=== PATIENT | female | born 1930 ===

== ENCOUNTER 2017-02-08 09:53 | Inpatient (IN) | payer MEDICARE, MEDICAID ==
[~2017-02-08] VITALS: Ht 172.7 cm; Wt 72.6 kg
--- NOTE | ~2017-02-08 | EC ---
PATIENT:EROS BATES DATE OF SERVICE: 02/08/17 SEX: F MEDICAL RECORD: [id number] DATE OF : [birth year] LOCATION:D.M2 D.210 AGE OF PATIENT: 86 ADMISSION DATE: 02/08/17 REFERRING PHYSICIAN: INTERPRETING PHYSICIAN: OLEG PENA MD ECHOCARDIOGRAM REPORT ECHO CHARGES 4 ECHO COMPLETE CLINICAL DIAGNOSIS: MURMUR/RENAL FAILURE ECHOCARDIOGRAPHIC MEASUREMENTS (adult normal given) AC root (d.<3.7cm) 3.0 cm LV Septum d (<1.2 cm> 1.0 cm Valve Excursion 0.9 cm LV Septum (systole) 1.6 cm Left Atria (s.<4.0cm> 3.4 cm LVPW d(<1.2cm) 1.2 cm RV (d.<2.3cm) 1.6 cm LVPW (sytole) 1.6 cm LV diastole(<5.6CM) 4.3 cm MV E-F(>70mm/sec) cm LV systole 1.8 cm LVOT Diameter 1.4 cm MV exc.(>10mm) cm Est.ejection fraction (50-75%) % Pericardial Effusion N DOPPLER: LVIT cm/sec A 206 cm/sec E 146 cm/sec LA cm/sec RVSP 31.0 mmHg LVOT 128 cm/sec AOP1/2T m/s Asc. Ao 294 cm/sec RVOT 85.0 cm/sec RA cm/sec PA 166 cm/sec AV Gradient Peak 35.0 mmHg AV Mean 21.0 mmHg AV Area 0.7 cm MV Gradient Peak 17.0 mmHg MV Mean 7.0 mmHg MV Area cm COMMENTS: Heat Treat Puller: 1 CHARLY ROBERTOOE Cured Meats Supervisor: 1 Dr. Pena TAPE# PACS DATE OF SERVICE: 02/08/2017 Echocardiogram FINDINGS: 1. Left ventricular chamber size is within normal limits. Left ventricular systolic function is normal. Overall ejection fraction estimated at 60%. 2. Left atrium, right atrium, and right ventricle chamber sizes are within normal limits. 3. Valvular structures: Aortic valve demonstrates moderate calcific aortic ECHOCARDIOGRAM REPORT [id number] EROS BATES stenosis, valve area calculates to 0.7 cm-squared. There is a gradient of 35 mm across the valve. The remaining valvular structures have normal structure and motion. 4. Doppler interrogation elsewise reveals moderate mitral regurgitation, mild tricuspid regurgitation, no other valvular insufficiency or stenosis. Pulmonary systolic pressure is normal estimated at 31 mmHg. 5. No evidence of pericardial effusion or left ventricular thrombus. TRANSINT:[id number] Voice Confirmation ID: [id number] DOCUMENT ID: [id number] OLEG PENA MD CC: [id number] DICTATION DATE: 02/08/17 163 WEATHER STRIP MECHANIC: 02/08/17 2338 ADM IN [facility] [address] [place] [address]
[2017-02-08 11:00] LABS: BASOPHILS 0.1 % (0-2); EOSINOPHILS 3.6 % (0-7); HEMATOCRIT 23.3 % (36.0-48.0); IMMATURE GRANULOCYTES 0.7 % (0-5); LYMPHOCYTES 14.4 % (15-50); MCH 28.9 pg (26.0-34.0); MCHC 31.8 g/dL (31.0-37.0); MEAN PLATELET VOLUME 8.3 fL (7.4-10.4); MONOCYTES 11.2 % (2-11); PLATELET COUNT 119 10x3/uL (130-400); RBC 2.56 10x6/uL (4.00-5.40); RDW 15.9 % (11.5-14.5); WBC 6.9 10x3/uL (4.8-10.8)
[2017-02-08 11:08] LABS: HEMOGLOBIN 7.4 g/dL (12-16)
[2017-02-08 11:17] LABS: ALBUMIN 2.9 g/dL (3.4-5.0); ALKALINE PHOSPHATASE 72 U/L (46-116); ALT (SGPT) 13 U/L (10-68); BILIRUBIN - TOTAL 0.28 mg/dL (0.2-1.3); CALC OSMOLALITY 300 mosm/kg (275-300); CALCIUM 8.4 mg/dL (8.5-10.1); CARBON DIOXIDE 22.1 mmol/L (21.0-32.0); CHLORIDE - SERUM 104 mmol/L (98-107); CREATININE - SERUM 4.1 mg/dL (0.6-1.3); GLUCOSE 119 mg/dL (74-106); POTASSIUM - SERUM 4.9 mmol/L (3.5-5.1); PROTEIN - SERUM 6.2 g/dL (6.4-8.2); SODIUM 136 mmol/L (136-145); UREA NITROGEN 91 mg/dL (7-18); eGFR NON AFRICAN AMERICAN 11 mL/min (90-120)
[2017-02-08 11:28] LABS: PRO BNP 1660 pg/mL (0-450)
[2017-02-08 11:56] LABS: TROPONIN-I < 0.017 ng/mL (0.000-0.060)
[2017-02-08 12:20] LABS: APTT 29.7 SECONDS (22.8-39.4); INR 1.13 (0.85-1.17); PROTIME 14.4 SECONDS (11.6-15.0)
[2017-02-08 12:33] LABS: APPEARANCE CLOUDY (CLEAR); BILIRUBIN NEGATIVE (NEGATIVE); COLOR YELLOW (YELLOW); GLUCOSE NEGATIVE (NEGATIVE); KETONE NEGATIVE (NEGATIVE); LEUKOCYTE ESTERASE 2+ (NEGATIVE); NITRITE POSITIVE (NEGATIVE); PROTEIN TRACE mg/dL (NEGATIVE); UROBILINOGEN NORMAL (NORMAL)
[2017-02-08 12:34] LABS: BACTERIA MANY /hpf (NONE SEEN); EPITHELIAL CELLS OCC /hpf (0-5); HYALINE CAST RARE /lpf (NONE SEEN); MUCUS <1+ /lpf (NONE SEEN); RED CELLS - URINE OCC /hpf (0-5)
--- NOTE | 2017-02-08 13:22 | NUR ---
PT TO ROOM FROM ER DAUGHTER IN LAW AT BEDSIDE. WILL ADMIT
[2017-02-08 13:23] VITALS: BP 135/54; BMI 24.3
--- NOTE | 2017-02-08 13:36 | NUR ---
ADMISSION COMPLETE. PT WITH SEVERE DEMENTIA AND DAUGHTER IN LAW AT BEDSIDE. BA ON AND SCDS ON AND PATENT. WAITING ON SON NEXT OF KIN TO GET HERE TO SIGN CONSENT FOR PRBC TRANSFUSION
[2017-02-08] MEDS ORDERED: NOVOLOG100 U/M1 SC (13:39)
[2017-02-08] MEDS ORDERED: METOLAZONE5 MG PO (13:40)
[2017-02-08] MEDS ORDERED: LANTUS INSULIN10 ML SC (13:40)
[2017-02-08] MEDS ORDERED: FUROSEMIDE20 MG PO (13:41)
[2017-02-08] MEDS ORDERED: BAYER CHEWABLE81 MG PO (13:41)
[2017-02-08] MEDS ORDERED: FLUTICASONE PRO16 GM NASAL (13:42)
[2017-02-08] MEDS ORDERED: PLAVIX75 MG PO (13:42)
[2017-02-08] MEDS ORDERED: MOBIC7.5 MG PO (13:42)
[2017-02-08] MEDS ORDERED: DIOVAN80 MG PO (13:43)
[2017-02-08] MEDS ORDERED: MIRALAX17 GM PO (13:43)
[2017-02-08] MEDS ORDERED: SENNA PLUS TA1 UDTAB PO (13:44)
[2017-02-08] MEDS ORDERED: LAMICTAL25 MG PO (13:44)
[2017-02-08] MEDS ORDERED: ULTRAM50 MG PO (13:45)
[2017-02-08] MEDS ORDERED: IBUPROFEN200 MG PO (13:45)
[2017-02-08] MEDS ORDERED: LAMICTAL100 MG PO (13:46)
[2017-02-08] MEDS ORDERED: NAMENDA5 MG PO (13:46)
[2017-02-08] MEDS ORDERED: ATIVAN0.5 MG PO (13:47)
[2017-02-08] MEDS ORDERED: RISPERDAL0.25 MG PO (13:47)
[2017-02-08 14:11] LABS: ERYTHROCYTE SEDIMENTATION RATE 26 mm/hr (0-42)
--- NOTE | 2017-02-08 14:12 | NUR ---
CALLED THE OFFICE FOR [facility] [facility]. SHE IS WITH PT WILL CALL ME BACK.
--- NOTE | 2017-02-08 14:45 | NUR ---
PT PULLED OFF TELE AND DOESNT WANT TO WEAR. RETURNED TO SAMPLE MAKER. 1450-PT PULLED OUT PIV WITH CATH TIP INTACT. JUAN RAMON RESITED TO R FA 20G X1 STICK.
--- NOTE | 2017-02-08 15:06 | NUR ---
PT IS SITTING UP IN BED WITH DAUGHTER IN LAW AT BEDSIDE. CONSENT WAS OBTAINED FOR PRBC TRANSFUSION FROM POA OF PT (SON). CONSENT IS SIGNED AND ON THE CHART. FIRST UNIT OF 2 PRBC STARTED TO TRANSFUSE. PRE TRANSFUSION VS ARE WNL WILL CONT TO MONITOR CLOSELY
[2017-02-08 16:15] VITALS: BP 137/40
--- NOTE | 2017-02-08 16:16 | NUR ---
PT STILL RECEIVING PRBC INFUSION. ALL VS ARE WNL. DAUGHTER IN LAW AT BEDSIDE WILL CONT TO MONITOR
--- NOTE | 2017-02-08 17:20 | NUR ---
PT FIRST UNIT OF PRBC DONE INFUSING. NO S/S TRANSFUSION REACTION DURING THIS TRANSFUSION VS HAVE REMAINED WNL. STARTED SECOND UNIT OF PRBC TRANSFUSING TO R FA VS ARE WNL. SON AND DAUGHTER IN LAW ARE AT PT BEDSIDE. WILL CONT TO MNITOR
--- NOTE | 2017-02-08 17:44 | NUR ---
PT PRBC INFUSING WITHOUT ANY PROBLEMS FAMILY AT BEDSIDE WILL CONT TO MONITOR
--- NOTE | 2017-02-08 18:50 | NUR ---
PT SITTING UP IN BED WITH FAMILY AT BEDSIDE. PRBC STILL INFUSING TO R FA WITHOUT ANY PROBLEMS.
[2017-02-08 19:00] VITALS: BP 142/79
--- NOTE | 2017-02-08 19:25 | NUR ---
PT BLOOD TRANSFUSION COMPLETE. PT VS ARE STILL WNL. FAMILY AT BEDSIDE DENY NEEDS
--- NOTE | 2017-02-08 19:30 | NUR ---
Received patient resting in bed, son and [id number] at bedside. Family report patient has been attempting to pull out her PIV, same wrapped in coban in lower right forearm. 1 Unit PRBC almost infused, normal saline will take over @50mls/hr. Patient is somewhat confused. BLE edema noted 3+, bruises on elbows, knees, and back, and family state patient used to ambulate on own until two months ago. [facility] staff have been trying to teach patient to use a walker but patient forgets. Patient did have partial dentures upper and lower but they have been lost at the [facility], does have a few teeth of her own.
[2017-02-09] VITALS: BP 128/43
[2017-02-09 04:00] VITALS: BP 115/48
--- NOTE | 2017-02-09 05:20 | NUR ---
Son has remained at bedside, patient has been sleeping now for two hours. had difficulty getting to sleep. Son did not want patient to be given Ativan, states patient has ahd this in the past and he believes it made her more eda and restless.
--- NOTE | 2017-02-09 06:37 | NUR ---
Marly reports that patient has slept fairly well since 0130, woke up briefly coughing then resettled to sleep. AM BG = 69, given two Brule Juices, Repeat BG = 95. Assisted up to BR by son and nurse, voided moderate amount of cloudy pale yellow urine.
--- NOTE | 2017-02-09 07:52 | NUR ---
AM ROUNDS - PT IN BED WITH SCD ON. IV TO RIGHT FA, NS AT 50CC/HR. BED AT LOWEST POSITION. SIDE RAILS UP X2. PT REFUSES A HEART MONITOR. BOX ALARM ON AND WORKING. DAUGHTER IN LAW AT BEDSIDE. NO NEEDS AT THIS TIME. WILL CONTINUE TO MONITOR
[2017-02-09 07:56] VITALS: BP 143/54
[2017-02-09 09:00] LABS: BASOPHILS 0.2 % (0-2); EOSINOPHILS 4.1 % (0-7); HEMATOCRIT 27.6 % (36.0-48.0); IMMATURE GRANULOCYTES 0.8 % (0-5); LYMPHOCYTES 15.2 % (15-50); MCH 30.1 pg (26.0-34.0); MCHC 33.3 g/dL (31.0-37.0); MCV 90.2 fL (80.0-100.0); MEAN PLATELET VOLUME 7.7 fL (7.4-10.4); MONOCYTES 13.8 % (2-11); NEUTROPHILS 65.9 % (40-80); RBC 3.06 10x6/uL (4.00-5.40); RDW 15.4 % (11.5-14.5); WBC 6.3 10x3/uL (4.8-10.8)
[2017-02-09 09:07] LABS: HEMOGLOBIN 9.2 g/dL (12-16); PLATELET COUNT 95 10x3/uL (130-400)
[2017-02-09 09:11] LABS: ANION GAP 14.1 mmol/L (8-16); CALCIUM 8.1 mg/dL (8.5-10.1); CARBON DIOXIDE 21.5 mmol/L (21.0-32.0); CREATININE - SERUM 3.5 mg/dL (0.6-1.3); POTASSIUM - SERUM 4.6 mmol/L (3.5-5.1)
[2017-02-09 09:19] LABS: PLATELET ESTIMATE DECREASED
[2017-02-09 10:26] VITALS: Ht 172.7 cm; Wt 72.6 kg
[2017-02-09 11:41] VITALS: BP 135/53
[2017-02-09] MEDS ORDERED: AUGMENTIN 500-11 TA1 PO (13:20)
--- NOTE | 2017-02-09 14:17 | NUR ---
PT AWAKE AND SITTING UP IN BED. FAMILY AT BEDSIDE. NO NEEDS AT THIS TIME. WILL CONTINUE TO MONITOR
[2017-02-09 16:26] VITALS: BP 158/67
--- NOTE | 2017-02-09 17:49 | NUR ---
CALLED REPORT TO NURSING FACILITY, [facility]. CALLED [facility]. WAITING ON [facility] FOR TRANSPORTATION. WILL CONTINUE TO MONITOR
--- NOTE | 2017-02-09 19:02 | NUR ---
LATE ENTRY 1730 PATIENT BEING DISCHARGED BACK TO [facility]. PCP- DR JEROME ANN. 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 TRANSFUSED W/ PRBCS. 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 MD SPOKE WITH THE FAMILY. THEY DO NOT WANT DIALYSIS IT WOULD NOT CHANGE UNDERLYING PROGNOSIS AT THIS AGE. CLINICAL COORDINATOR AND PRIMARY NURSE SPOKE WITH FACILITY. PCS FORM COMPLETED AND CM SPOKE WITH [facility] REGARDING AMBULANCE TRANSPORT. FAMILY AWARE OF DISCHARGE BACK THIS PM.
--- NOTE | 2017-02-09 19:02 | NUR ---
Is the patient Alert and Oriented? No 0 * How many steps to enter\exit or inside your home? none 0 * PCP Nursing facility 0 * Pharmacy Pharmacy for Nursing Facility 0 * Preadmission Environment Skilled Nursing Acute Care Facility 0 * Facility Name [facility] 0 * ADLs Total Dependent 0 * List name and contact numbers for known caregivers / representatives who currently or will assist patient after discharge: no patient family contact information sent from [facility] 0 * Additional services required to return to the preadmission environment? No 0 * Can the patient safely return to the preadmission environment? Yes 0 * Has this patient been hospitalized within the prior 30 days at any hospital? Yes 0
--- NOTE | 2017-02-09 19:33 | NUR ---
[facility] HERE TO TRANSPORT PT TO [facility]. BELONGINGS LEAVE WITH PT. DISCHARGE INSTRUCTIONS GIVEN TO EMT. IV OUT.
== END 2017-02-09 19:34 | DRG 683 ==
LOC: D.ER 09:53 → D.M2 12:14
PROVIDERS: Emergency Medicine; ADMIT Internal Medicine Nephrology
DX: N17.9 Acute kidney failure, unspecified (principal); N39.0 Urinary tract infection, site not specified; E11.22 Type 2 diabetes mellitus with diabetic chronic kidney disease; I12.9 Hypertensive chronic kidney disease with stage 1 through stage 4 chronic kidney disease, or unspecified chronic kidney disease; N18.4 Chronic kidney disease, stage 4 (severe); D64.9 Anemia, unspecified; F03.90 Unspecified dementia, unspecified severity, without behavioral disturbance, psychotic disturbance, mood disturbance, and anxiety